=== PATIENT | female | born 1945 | race Caucasian/White ===

== ENCOUNTER → 2016-08-22 | Outpatient (CLI) | payer MEDICARE, OTHER ==
--- NOTE | 2016-08-22 15:08 | MR ---
EXAMINATION: MRI cervical spine HISTORY: Neuralgia COMPARISON: None TECHNIQUE: Multiplanar and multisequence images obtained of the cervical spine without contrast. FINDINGS: The cervical spinal alignment is normal. The vertebral body heights appear maintained. Th ere is no abnormal bone marrow signal. There is a hemangioma within the T2 vertebral body. The cervi ronny spinal cord signal appears normal. The visualized intracranial components appear normal. The par avertebral soft tissues appear normal. C2-C3: There is a small broad-based left paracentral osteophyte disc complex and uncovertebral hype rtrophy resulting in minimal spinal canal stenosis. There is mild left neural foraminal stenosis. C3-C4: Small diffuse osteophyte disc complex mild spinal canal stenosis. There is moderate bilateral neural foraminal stenosis accentuated by uncovertebral hypertrophy. C4-C5: Small diffuse disc bulge without significant spinal canal or neural foraminal stenosis. C5-C6: Tiny diffuse disc bulge with moderate left neural foraminal stenosis accentuated by uncoverte bral hypertrophy. No significant spinal canal stenosis. C6-C7: Small diffuse disc bulge asymmetric to the left with uncovertebral hypertrophy. There is mild to moderate left neural foraminal stenosis. C7-T1: Unremarkable. IMPRESSION: 1. Mild to moderate multilevel degenerative disc disease noted within the cervical spine with indivi dual details above.
--- NOTE | 2016-08-22 15:35 | MR ---
EXAMINATION: MRI lumbar spine HISTORY: Radiculopathy COMPARISON: None TECHNIQUE: Multiplanar and multisequence images obtained of the lumbar spine without contrast. FINDINGS: There is a trace anterolisthesis of L4 on L5 otherwise the lumbar spinal alignment appears normal. Vertebral body heights appear well maintained. Mild heterogeneous bone marrow signal identi fied with mild endplate and facet signal changes. No suspicious bone marrow signal noted. The distal spinal cord appears normal and the conus terminates at L2. The visualized retroperitoneal structure s appear normal. The SI joints are symmetric. T12-L1: Unremarkable. L1-L2: Tiny diffuse disc bulge without significant spinal canal or neural foraminal stenosis. L2-L3: Small diffuse disc bulge with a trace spinal canal stenosis. Moderate right and mild to moder ate left neural foraminal stenosis. L3-L4: Moderate diffuse disc bulge without significant spinal canal stenosis. Moderate to severe gallito ateral neural foraminal stenosis. L4-L5: Small diffuse cerebral bulge without significant spinal canal stenosis. Moderate bilateral ne ural foraminal stenosis. L5-S1: No significant disc bulge. Moderate right and moderate to severe left neural foraminal stenos is demonstrated by facet hypertrophy. IMPRESSION: 1. Mild to moderate multilevel degenerative changes noted within the lumbar spine with individual de tails above.
== END ==
LOC: MW.MRI 08:11
PROVIDERS: ATTEND Psychiatry & Neurology Neuromuscular Medicine
DX: M50.13 Cervical disc disorder with radiculopathy, cervicothoracic region (principal); M50.11 Cervical disc disorder with radiculopathy, high cervical region; M50.121 Cervical disc disorder at C4-C5 level with radiculopathy; M50.122 Cervical disc disorder at C5-C6 level with radiculopathy; M50.123 Cervical disc disorder at C6-C7 level with radiculopathy
CPT/HCPCS: 72141; 72141-26; 72148; 72148-26

== ENCOUNTER → 2016-09-17 | Outpatient (CLI) | payer MEDICARE, OTHER | LOC: MW.CHNEURO 08:00 | PROVIDERS: ATTEND Psychiatry & Neurology Neuromuscular Medicine | DX: M54.10 Radiculopathy, site unspecified (principal); M79.2 Neuralgia and neuritis, unspecified | CPT/HCPCS: 99214 ==

== ENCOUNTER 2017-06-28 08:59 | Day surgery (SDC) | payer MEDICARE, OTHER ==
[~2017-06-28 08:59] MED LIST: Bupivacaine 25%/EPINEPHrine/PF 30 ML ONE; Dexamethasone/Tobramycin 0.1-0.3% Ophth Oint 3.5 GM Tube ONE; Octyl 2-Cyanoacrylate 1 Tube ONE
[2017-06-28] MEDS ORDERED: Midazolam 1 MG/ML 2 ML SDV ONE ×2 (09:32→12:02)
[2017-06-28] MEDS ORDERED: fentaNYL 100 MCG/2 ML SDV ONE (09:32)
[2017-06-28] MEDS ORDERED: Propofol 200 MG/20 ML SDV ONE (09:32)
[2017-06-28] MEDS ORDERED: Lactated Ringers 1,000 ML IV SCH (10:00)
[2017-06-28] MEDS ORDERED: Bupivacaine 0.25%/EPINEPHrine 1:200,000 10 ML SDV INJECT ONE (10:17)
[2017-06-28] MEDS ORDERED: ceFAZolin 2 GM in Premix Bag 1 BAG IV ONE (10:17)
[2017-06-28] MEDS ORDERED: Acetaminophen/HYDROcodone 325-5 MG Tab PO PRN (10:17)
--- NOTE | 2017-06-28 11:01 | PCM.PREANE ---
Preanesthetic Assessment - Anesthesia/Transfusion/Family Hx Anesthesia History: Prior Anesthesia Without Reaction Family History of Anesthesia Reaction: No Transfusion History: Prior Transfusion Without Reaction Intubation History: Unknown - Review of Systems General: No Symptoms Pulmonary: No Symptoms Cardiovascular: No Symptoms Gastrointestinal: No Symptoms Neurological: No Symptoms Other: Reports: None - Physical Assessment Height: 1.65 m Weight: 88.904 kg ASA Class: 2 Mental Status: Alert & Oriented x3 Airway Class: Mallampati = 2 Dentition: Reports: Normal Dentition (grinded edges on front teeth) Thyro-Mental Finger Breadths: 3 Mouth Opening Finger Breadths: 2 ROM/Head Extension: Limited/Partial Lungs: Clear to Auscultation, Normal Respiratory Effort Cardiovascular: Regular Rate, Regular Rhythm - Allergies Allergies/Adverse Reactions: Allergies Allergy/AdvReac Type Severity Reaction Status Date / Time No Known Allergies Allergy Verified 06/26/17 14:23 - Blood Blood Available: No - Anesthesia Plan Pre-Op Medication Ordered: None - Acknowledgements Anesthesia Type Planned: MAC Pt an Appropriate Candidate for the Planned Anesthesia: Yes Alternatives and Risks of Anesthesia Discussed w Pt/Guardian: Yes Pt/Guardian Understands and Agrees with Anesthesia Plan: Yes PreAnesthesia Questionnaire HEENT History: Other HEENT History: wears glasses Gastrointestinal History: Reports: GERD Musculoskeletal History: Reports: Arthritis, Fracture Other Musculoskeletal History: polio as a child, weakness in left arm Endocrine/Metabolic History: Reports: Obesity/BMI 30+ Hematologic History: Reports: Blood Transfusion(s) - Past Surgical History GI Surgical History: Reports: Cholecystectomy Female Surgical History: Reports: Hysterectomy - SUBSTANCE USE Smoking Status *Q: Never Smoker Recreational Drug Use History: No - HOME MEDS Home Medications: Home Meds Acetaminophen 650 mg PO BEDTIME 06/26/17 [History] Nortriptyline 10 mg PO BEDTIME 06/26/17 [History] Omeprazole 40 mg PO DAILY 06/26/17 [History] - CURRENT (IN HOUSE) MEDS Current Meds: Current Medications Hydrocodone Bitart/Acetaminophen (Shubuta 325-5 Mg) 1 tab PO Q4H PRN PRN Reason: Pain Lactated Ringer's (Ringers, Lactated) 1,000 mls @ 125 mls/hr IV ASDIRECTED JUAN Last Admin: 06/28/17 10:00 Dose: 125 mls/hr Discontinued Medications Bupivacaine HCl/Epinephrine Bitart (Marcaine 0.25%/Epinephrine 1:200,000) 10 ml INJECT ONETIME ONE Stop: 06/28/17 10:18 Fentanyl (Sublimaze) Confirm Administered Dose 100 mcg .ROUTE .STK-MED ONE Stop: 06/28/17 09:33 Bupivacaine HCl/Epinephrine Bitart (Sensorc Mpf 0.25%-Epi 1:[id number]) Confirm Administered Dose 30 mls @ as directed .ROUTE .STK-MED ONE Stop: 06/28/17 07:21 Cefazolin Sodium/Dextrose 2 gm (/ Premix) 50 mls @ 100 mls/hr IV ONETIME ONE Stop: 06/28/17 10:46 Lidocaine HCl (Xylocaine-Mpf 1%) Confirm Administered Dose 5 ml .ROUTE .STK-MED ONE Stop: 06/28/17 09:36 Midazolam HCl (Versed 1 Mg/Ml) Confirm Administered Dose 2 mg .ROUTE .STK-MED ONE Stop: 06/28/17 09:33 Octyl Cyanoacrylate (Dermabond Advance) Confirm Administered Dose 1 applic .ROUTE .STK-MED ONE Stop: 06/28/17 07:21 Propofol (Diprivan 20 Ml) Confirm Administered Dose 200 mg .ROUTE .STK-MED ONE Stop: 06/28/17 09:33 Tobramycin/Dexamethasone (Tobradex Ophth Oint) Confirm Administered Dose 3.5 gm .ROUTE .STK-MED ONE Stop: 06/28/17 07:21
[2017-06-28] MEDS ORDERED: ceFAZolin 1 GM Vial ONE (12:37)
--- NOTE | 2017-06-28 13:34 | PCM48HPAN ---
Post Anesthesia Note - EVALUATION WITHIN 48HRS OF ANESTHETIC Vital Signs in Normal Range: Yes Patient Participated in Evaluation: Yes Respiratory Function Stable: Yes Airway Patent: Yes Cardiovascular Function Stable: Yes Hydration Status Stable: Yes Pain Control Satisfactory: Yes Nausea and Vomiting Control Satisfactory: Yes Mental Status Recovered: Yes - COMMENTS/OBSERVATIONS Free Text/Narrative:: no anesthesia problems, patient skipped recovery room phase of postoperative care
--- NOTE | 2017-06-28 14:26 | PCM.OPNOTE ---
- General Post-Op/Procedure Note Date of Surgery/Procedure: 06/28/17 Operative Procedure(s): bilateral upper lid blepharoplasties for excess skin Pre Op Diagnosis: bilateral upper eyelid excess skin causing visual obstruction Post-Op Diagnosis: Same Anesthesia Technique: Local, MAC Primary Surgeon: Aimee Collins [employer] Lieutenant: Michelle Nixon Complications: None Condition: Good
--- NOTE | 2017-06-28 20:24 | OR ---
SURGEON: SHELIA LEDEZMA MD DATE OF PROCEDURE: 06/28/2017 PREOPERATIVE DIAGNOSIS: Bilateral upper lid excess skin causing visual obstruction. POSTOPERATIVE DIAGNOSIS: Bilateral upper lid excess skin causing visual obstruction. PROCEDURE: Bilateral upper lid blepharoplasty for excess skin. SAND SLINGER OPERATOR: TARYN Sánchez. REASON SAND SLINGER OPERATOR WAS NECESSARY: Retraction, positioning, and closure assistance. ANESTHESIA: Local MAC. INDICATION: Ms. 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 Risks and benefits of excision were discussed with her, and she was in agreement to proceed. Risks were including, but not limited to bleeding, infection, damage to underlying or overlying structures, possible need for future interventions, and possible scarring. PROCEDURE IN DETAIL: After informed consent was obtained and placed on the chart, the patient was brought into the operating theater and laid in a supine position. After local MAC anesthesia was obtained, the area was prepped and draped and a time-out was completed to confirm side and site. Attention was then paid to marking of the upper eyelid planned incisions. 1.5 cm estimate was planned for excision with a 1 cm of skin being left on the upper eyelid to preserve the tarsal area. Once adequately marked, it was anesthetized and then allowed to sit for meticulous hemostasis with the epinephrine. Once adequately prepared, attention was then paid to excision of the ellipse of skin in a normal fashion, and meticulous hemostasis was obtained for the underlying muscle contraction. Once adequately excised, then meticulous hemostasis had been obtained. The wounds were closed using deep 5-0 Monocryl stitch and a running 6-0 subcuticular for the skin. The 6-0 Prolene stitch was Steri-Stripped in place using Mastisol and Steri-Strips at the medial and lateral aspect of the eyes. The patient tolerated this well. All counts and needles were correct at the end of the case. FOLLOWUP INSTRUCTIONS: The patient will see us in approximately 1 week, sooner if any problems, questions, or concerns. JASON / ZURDO /[id number]
== END 2017-06-28 13:35 | disposition home or self-care (01) ==
LOC: MW.SDS 08:59
PROVIDERS: ATTEND Plastic Surgery
DX: H02.834 Dermatochalasis of left upper eyelid (principal); H02.831 Dermatochalasis of right upper eyelid; K21.9 Gastro-esophageal reflux disease without esophagitis; M19.90 Unspecified osteoarthritis, unspecified site; E66.9 Obesity, unspecified; Z68.30 Body mass index [BMI] 30.0-30.9, adult; Z90.49 Acquired absence of other specified parts of digestive tract; Z79.899 Other long term (current) drug therapy
CPT/HCPCS: 15822; A9270; J0690; J2250; J3010; J7120; 00103; J2704

== ENCOUNTER 2018-02-01 18:29 | Emergency (ER) | payer MEDICARE, OTHER ==
[2018-02-01] MEDS ORDERED: Sodium Chloride 0.9% 1,000 ML IV ONE (18:30)
[2018-02-01] MEDS ORDERED: Promethazine 25 MG/ML SDV IM ONE (18:31)
[2018-02-01] MEDS ORDERED: Ketorolac 30 MG/ML SDV IVPUSH ONE (18:35)
--- NOTE | 2018-02-01 18:35 | EDM.PDOC ---
ED HPI GENERAL MEDICAL PROBLEM - General Chief Complaint: Gastrointestinal Problem Stated Complaint: AMB Time Seen by Provider: 02/01/18 18:30 Source of Information: Reports: Patient History Limitations: Reports: No Limitations - History of Present Illness INITIAL COMMENTS - FREE TEXT/NARRATIVE: HISTORY AND PHYSICAL: History of present illness: Patient is a 72-year-old female who presents to the emergency room today with complaints of nausea, vomiting and post surgical pain. Patient had a left knee surgery on Saturday by Dr. Olivera. She states she was given a prescription for Bristow for pain management. She states she is unable to take this medication as it causes extreme nausea and vomiting. She reports that [id number] Tylenol and ibuprofen has not been alleviating her discomfort. When attempting to take the Bristow for pain management and deal with the nausea and vomiting. She did have some Zofran available to her at home which she states has not helped with the nausea and vomiting. She is currently concerned as she feels she is dehydrated from this. She states she has no concerns of the post surgery itself. She denies any fever, chills, chest pain, shortness of breath or cough. Denies diarrhea, constipation or dysuria. Review of systems: As per history of present illness and below otherwise all systems reviewed and negative. Past medical history: As per history of present illness and as reviewed below otherwise noncontributory. Surgical history: As per history of present illness and as reviewed below otherwise noncontributory. Social history: No reported history of drug or alcohol abuse. Family history: As per history of present illness and as reviewed below otherwise noncontributory. Physical exam: General: Well-developed and well-nourished 72-year-old female. Alert and oriented. Nontoxic appearing and in no acute distress. HEENT: Atraumatic, normocephalic, pupils equal and reactive bilaterally, negative for conjunctival pallor or scleral icterus, mucous membranes moist, throat clear, neck supple, nontender, trachea midline. No drooling or trismus noted. No meningeal signs Lungs: Clear to auscultation, breath sounds equal bilaterally, chest nontender. Heart: S1S2, regular rate and rhythm without overt murmur Abdomen: Soft, nondistended, nontender. Negative for masses or hepatosplenomegaly. Negative for costovertebral tenderness. Pelvis: Stable nontender. 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: Deferred. Rectal: Deferred. Skin: Intact, warm, dry. No lesions or rashes noted. Extremities: Atraumatic, does have a dressing to the left knee with the surrounding skin to appear intact without evidence of erythema. He is negative for cords or calf pain. Neurovascular unremarkable. Neuro: Awake, alert, oriented. Cranial nerves II through XII unremarkable. Cerebellum unremarkable. Motor and sensory unremarkable throughout. Exam nonfocal. Notes: Patient states that she feels somewhat improved after the IM Phenergan and fluids. Will discharge patient to home with a prescription for the Phenergan and tramadol. Encouraged her to follow-up with Dr. Collins on Saturday for further pain management. Diagnostics: CBC, CMP Therapeutics: IV fluid, Phenergan IM Prescription: Phenergan IM Tramadol PRN Impression: Nausea Post Operative Pain Plan: 1. Please continue to take your pain medication routinely. You may want to use the tramadol instead of the Bristow for pain management if you feel that the Bristow is too strong. 2. You may continue with your Zofran. Phenergan suppository has been prescribed to help with the nausea as well. 3. Small frequent sips of fluids to prevent dehydration. 4. Follow-up with Dr. Olivera next week. Return to the ED as needed and as discussed. Definitive disposition and diagnosis as appropriate pending reevaluation and review of above. Left knee pain Pain Score (Numeric/FACES): 7 - Related Data Allergies Allergy/AdvReac Type Severity Reaction Status Date / Time Penicillins Allergy Rash Verified 02/01/18 18:31 Home Meds: Home Meds Acetaminophen 650 mg PO BEDTIME 06/26/17 [History] Nortriptyline 10 mg PO BEDTIME 06/26/17 [History] Omeprazole 40 mg PO DAILY 06/26/17 [History] Nitrofurantoin Macrocrystal [Nitrofurantoin] 50 mg PO BEDTIME 01/21/18 [History] traMADol HCl [Tramadol HCl] 50 - 100 mg PO Q6H PRN 01/21/18 [History] Hydrocodone/Acetaminophen [Hydrocodon-Acetaminophen 5-325] 1 each PO Q6HR PRN [History] Nortriptyline HCl [Pamelor] 10 mg PO DAILY 02/01/18 [History] Omeprazole Magnesium [Prilosec Otc] 40 mg PO DAILY 02/01/18 [History] Ondansetron HCl [Zofran] 4 mg PO Q6H PRN 02/01/18 [History] Promethazine HCl [Phenergan] 12.5 mg RC TID PRN #6 supp.rect 02/01/18 [Rx] traMADol [Ultram] 50 mg PO Q4H PRN #20 tab 02/01/18 [Rx] Past Medical History HEENT History: Reports: Hard of Hearing Other HEENT History: wears glasses Gastrointestinal History: Reports: GERD, Hiatal Hernia 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 History: Reports: UTI, Recurrent Other 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 History: takes daily antibiotic DATA ENGINEER History: Reports: Musculoskeletal History: Reports: Osteoarthritis Other Musculoskeletal History: polio as a child, weakness in left arm Neurological History: Reports: Other (See Below) Other Neuro History: hx of polio as a child- has nerve pain in left arm- takes Nortriptyline, hx of motion sickness Endocrine/Metabolic History: Reports: Obesity/BMI 30+ Hematologic History: Reports: Blood Transfusion(s) - Past Surgical History HEENT Surgical History: Reports: Other (See Below) Other HEENT Surgeries/Procedures: had a "tag" removed from her eye GI Surgical History: Reports: Appendectomy, Cholecystectomy Female Surgical History: Reports: Hysterectomy, Other (See Below) Other Female Surgeries/Procedures: bladder repair ED ROS GENERAL - Review of Systems Review Of Systems: ROS reveals no pertinent complaints other than HPI. ED EXAM, GI/ABD - Physical Exam Exam: See Below (See dictation) Course - Vital Signs Last Recorded V/S: Last Vital Signs Temp 99.1 F 02/01/18 19:24 Pulse 75 02/01/18 19:24 Resp 18 02/01/18 19:24 BP 152/68 H 02/01/18 19:24 Pulse Ox 92 L 02/01/18 19:24 - Orders/Labs/Meds Labs: Laboratory Tests 02/01/18 02/01/18 Range/Units 19:03 19:03 WBC 7.92 (4.0-11.0) K/uL RBC 4.34 (4.30-5.90) M/uL Hgb 12.7 (12.0-16.0) g/dL Hct 38.0 (36.0-46.0) % MCV 87.6 (80.0-98.0) fL MCH 29.3 (27.0-32.0) pg MCHC 33.4 (31.0-37.0) g/dL RDW Std Deviation 42.3 (28.0-62.0) fl RDW Coeff of Noah 13 (11.0-15.0) % Plt Count 311 (150-400) K/uL MPV 9.40 (7.40-12.00) fL Neut % (Auto) 62.7 (48.0-80.0) % Lymph % (Auto) 26.8 (16.0-40.0) % [place] % (Auto) 9.6 (0.0-15.0) % Eos % (Auto) 0.6 (0.0-7.0) % Baso % (Auto) 0.3 (0.0-1.5) % Neut # (Auto) 5.0 (1.4-5.7) K/uL Lymph # (Auto) 2.1 (0.6-2.4) K/uL [place] # (Auto) 0.8 (0.0-0.8) K/uL Eos # (Auto) 0.1 (0.0-0.7) K/uL Baso # (Auto) 0.0 (0.0-0.1) K/uL Nucleated RBC % 0.0 /100WBC Nucleated RBCs # 0 K/uL Sodium 140 (136-145) mmol/L Potassium 4.1 (3.5-5.1) mmol/L Chloride 104 (98-107) mmol/L Carbon Dioxide 29.5 (21.0-32.0) mmol/L BUN 10 (7.0-18.0) mg/dL Creatinine 0.7 (0.6-1.0) mg/dL Est Cr Clr Drug Dosing 69.01 mL/min Estimated GFR (MDRD) > 60.0 ml/min Glucose 104 (74-106) mg/dL Calcium 8.4 L (8.5-10.1) mg/dL Total Bilirubin 1.2 H (0.2-1.0) mg/dL AST 25 (15-37) IU/L ALT 25 (14-63) IU/L Alkaline Phosphatase 200 H (46-116) U/L Total Protein 5.5 L (6.4-8.2) g/dL Albumin <0.6 L (3.4-5.0) g/dL Globulin 5.5 H (2.0-3.5) g/dL Albumin/Globulin Ratio 0.0 L (1.3-2.8) Meds: Medications Discontinued Medications Generic Name Dose Route Start Last Admin Trade Name Freq PRN Reason Stop Dose Admin Sodium Chloride 1,000 mls @ 999 mls/hr 02/01/18 18:30 02/01/18 18:50 Normal Saline IV 02/01/18 19:30 999 mls/hr STAT ONE Administration Ketorolac Tromethamine 30 mg 02/01/18 18:35 02/01/18 18:52 Toradol IVPUSH 02/01/18 18:36 30 mg ONETIME ONE Administration Promethazine HCl 25 mg 02/01/18 18:31 02/01/18 18:50 Phenergan IM 02/01/18 18:32 25 mg ONETIME ONE Administration Departure - Departure Time of Disposition: 19:43 Disposition: Home, Self-Care 01 Clinical Impression: Post-operative pain Nausea and vomiting Qualifiers: Vomiting type: unspecified Vomiting Intractability: non-intractable Qualified Code(s): R11.2 - Nausea with vomiting, unspecified - Discharge Information Prescriptions: Promethazine HCl [Phenergan] 12.5 mg RC TID PRN #6 supp.rect PRN Reason: Nausea traMADol [Ultram] 50 mg PO Q4H PRN #20 tab PRN Reason: Pain Referrals: PCP,None [Primary Care Provider] - Forms: ED Department Discharge Additional Instructions: The following information is given to patients seen in the emergency department who are being discharged to home. This information is to outline your options for follow-up care. We provide all patients seen in our emergency department with a follow-up referral. The need for follow-up, as well as the timing and circumstances, are variable depending upon the specifics of your emergency department visit. If you don't have a primary care physician on staff, we will provide you with a referral. We always advise you to contact your personal physician following an emergency department visit to inform them of the circumstance of the visit and for follow-up with them and/or the need for any referrals to a consulting specialist. The emergency department will also refer you to a specialist when appropriate. This referral assures that you have the opportunity for follow-up care with a specialist. All of these measure are taken in an effort to provide you with optimal care, which includes your follow-up. Under all circumstances we always encourage you to contact your private physician who remains a resource for coordinating your care. When calling for follow-up care, please make the office aware that this follow-up is from your recent emergency room visit. If for any reason you are refused follow-up, please contact the [facility] Emergency Department at and asked to speak to the emergency department charge nurse. [facility] [address] [place] [id number] [facility] - [facility] [address], [address] [place] [address] 1. Please continue to take your pain medication routinely. You may want to use the tramadol instead of the Bristow for pain management if you feel that the Bristow is too strong. 2. You may continue with your Zofran. Phenergan suppository has been prescribed to help with the nausea as well. 3. Small frequent sips of fluids to prevent dehydration. 4. Follow-up with Dr. Olivera next week. Return to the ED as needed and as discussed.
[2018-02-01 19:40] LABS: CHLORIDE,CL 104 mmol/L (98-107); SODIUM,NA 140 mmol/L (136-145)
== END 2018-02-01 20:17 | disposition home or self-care (01) ==
LOC: MW.ED 18:29
DX: G89.18 Other acute postprocedural pain (principal); R11.2 Nausea with vomiting, unspecified; K21.9 Gastro-esophageal reflux disease without esophagitis; M19.90 Unspecified osteoarthritis, unspecified site; Z88.0 Allergy status to penicillin; Z79.899 Other long term (current) drug therapy
CPT/HCPCS: 36415; 80053; 85025; 96361; 96372; 96374; 99284; J1885; J2550; J7040

== ENCOUNTER 2019-05-11 13:16 | Day surgery (SDC) | payer MEDICARE, OTHER ==
[2019-05-11] MEDS ORDERED: Sodium Chloride 0.9% 2.5 ML Syringe FLUSH PRN (13:19)
[2019-05-11] MEDS ORDERED: Sodium Chloride 0.9% 1,000 ML IV ONE (13:19)
[2019-05-11] MEDS ORDERED: Sodium Chloride 0.9% 10 ML Syringe FLUSH PRN (13:19)
--- NOTE | 2019-05-11 13:19 | EDM.PDOC ---
ED HPI GENERAL MEDICAL PROBLEM - General Chief Complaint: Chest Pain Stated Complaint: CHEST DISCOMFORT Time Seen by Provider: 05/11/19 13:19 Source of Information: Reports: Patient History Limitations: Reports: No Limitations - History of Present Illness INITIAL COMMENTS - FREE TEXT/NARRATIVE: HISTORY AND PHYSICAL: History of present illness: patient is a 73-year-old female presents to the ED chest discomfort. she states that last night she had some chicken and she felt the chicken got stuck. She has had some vomiting since then but still has discomfort in her mid chest and she is unable to swallow her saliva and keeps spitting up secretions. She denies shortness of breath, cough, fevers, chills, nausea, vomiting. She does have a hiatal hernia. Denies significant past medical or surgical history. Review of systems: As per history of present illness and below otherwise all systems reviewed and negative. Past medical history: As per history of present illness and as reviewed below otherwise noncontributory. Surgical history: As per history of present illness and as reviewed below otherwise noncontributory. Social history: No reported history of drug or alcohol abuse. Family history: As per history of present illness and as reviewed below otherwise noncontributory. Physical exam: General: Patient sitting comfortably in no acute distress and nontoxic appearing HEENT: Atraumatic, normocephalic, pupils reactive, negative for conjunctival pallor or scleral icterus, mucous membranes moist, throat clear, neck supple, nontender, trachea midline. No meningeal signs. Lungs: Clear to auscultation, breath sounds equal bilaterally, chest nontender. Heart: S1S2, regular, negative for clicks, rubs, or overt murmur. Abdomen: Soft, nondistended, nontender. Negative for masses or hepatosplenomegaly. Negative for costovertebral tenderness. No rigidity, rebound , guarding. Pelvis: Stable nontender. 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: Deferred. Rectal: Deferred. Extremities: Atraumatic, negative for cords or calf pain. Neurovascular unremarkable. Neuro: Awake, alert, oriented. Cranial nerves II through XII unremarkable. Cerebellum unremarkable. Motor and sensory unremarkable throughout. Exam nonfocal. Notes: Patient unable to keep liquid down with PO challenge. Diagnostics: CBC, CMP, troponin, EKG, CXR Therapeutics: 1g Glucagon IV Prescriptions: Impression: Food bolus Plan: Discussed with Dr. Chavarria, patient will be taken to OR for food bolus. Definitive disposition and diagnosis as appropriate pending reevaluation and review of above. CHEST Pain Score (Numeric/FACES): 6 - Related Data Allergies Allergy/AdvReac Type Severity Reaction Status Date / Time Penicillins Allergy Rash Verified 02/01/18 18:31 Home Meds: Home Meds Acetaminophen 650 mg PO BEDTIME 06/26/17 [History] Nortriptyline 10 mg PO BEDTIME 06/26/17 [History] Omeprazole 40 mg PO DAILY 06/26/17 [History] Nitrofurantoin Macrocrystal [Nitrofurantoin] 50 mg PO BEDTIME 01/21/18 [History] traMADol HCl [Tramadol HCl] 50 - 100 mg PO Q6H PRN 01/21/18 [History] Hydrocodone/Acetaminophen [Hydrocodon-Acetaminophen 5-325] 1 each PO Q6HR PRN [History] Nortriptyline HCl [Pamelor] 10 mg PO DAILY 02/01/18 [History] Omeprazole Magnesium [Prilosec Otc] 40 mg PO DAILY 02/01/18 [History] Ondansetron HCl [Zofran] 4 mg PO Q6H PRN 02/01/18 [History] Promethazine HCl [Phenergan] 12.5 mg RC TID PRN #6 supp.rect 02/01/18 [Rx] traMADol [Ultram] 50 mg PO Q4H PRN #20 tab 02/01/18 [Rx] Past Medical History HEENT History: Reports: Hard of Hearing Other HEENT History: wears glasses Gastrointestinal History: Reports: GERD, Hiatal Hernia 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 History: Reports: UTI, Recurrent Other 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 History: 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 daily antibiotic 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: Musculoskeletal History: Reports: Osteoarthritis Other Musculoskeletal History: polio as a child, weakness in left arm Neurological History: Reports: Other (See Below) Other Neuro History: hx of polio as a child- has nerve pain in left arm- takes Nortriptyline, hx of motion sickness Endocrine/Metabolic History: Reports: Obesity/BMI 30+ Hematologic History: Reports: Blood Transfusion(s) - Past Surgical History HEENT Surgical History: Reports: Other (See Below) Other HEENT Surgeries/Procedures: had a "tag" removed from her eye GI Surgical History: Reports: Appendectomy, Cholecystectomy Female Surgical History: Reports: Hysterectomy, Other (See Below) Other Female Surgeries/Procedures: bladder repair Social & Family History - Family History Family Medical History: Noncontributory ED ROS GENERAL - Review of Systems Review Of Systems: Comprehensive ROS is negative, except as noted in HPI. ED EXAM, GENERAL - Physical Exam Exam: See Below (see dictation) Course - Vital Signs Last Recorded V/S: Last Vital Signs Temp 98.1 F 05/11/19 13:25 Pulse 100 05/11/19 13:25 Resp 16 05/11/19 13:25 BP 160/96 H 05/11/19 13:25 Pulse Ox 95 05/11/19 13:25 - Orders/Labs/Meds Orders: Active Orders 24 hr Category Date Time Status EKG Documentation Completion [RC] STAT Care 05/11/19 13:19 Active Sodium Chloride 0.9% [Saline Flush] Med 05/11/19 13:19 Active 10 ml FLUSH ASDIRECTED PRN Sodium Chloride 0.9% [Saline Flush] Med 05/11/19 13:19 Active 2.5 ml FLUSH ASDIRECTED PRN Saline Lock Insert [OM.PC] Stat Oth 05/11/19 13:19 Ordered Medication Orders Sodium Chloride (Saline Flush) 10 ml FLUSH ASDIRECTED PRN PRN Reason: Keep Vein Open Sodium Chloride (Saline Flush) 2.5 ml FLUSH ASDIRECTED PRN PRN Reason: Keep Vein Open Labs: Laboratory Tests 05/11/19 05/11/19 05/11/19 Range/Units 13:20 13:20 14:01 WBC 7.93 (4.0-11.0) K/uL RBC 5.51 (4.30-5.90) M/uL Hgb 16.4 H (12.0-16.0) g/dL Hct 48.1 H (36.0-46.0) % MCV 87.3 (80.0-98.0) fL MCH 29.8 (27.0-32.0) pg MCHC 34.1 (31.0-37.0) g/dL RDW Std Deviation 43.0 (28.0-62.0) fl RDW Coeff of Noah 13 (11.0-15.0) % Plt Count 327 (150-400) K/uL MPV 9.90 (7.40-12.00) fL Neut % (Auto) 43.9 L (48.0-80.0) % Lymph % (Auto) 45.1 H (16.0-40.0) % [place] % (Auto) 9.2 (0.0-15.0) % Eos % (Auto) 1.5 (0.0-7.0) % Baso % (Auto) 0.3 (0.0-1.5) % Neut # (Auto) 3.5 (1.4-5.7) K/uL Lymph # (Auto) 3.6 H (0.6-2.4) K/uL [place] # (Auto) 0.7 (0.0-0.8) K/uL Eos # (Auto) 0.1 (0.0-0.7) K/uL Baso # (Auto) 0.0 (0.0-0.1) K/uL Nucleated RBC % 0.0 /100WBC Nucleated RBCs # 0 K/uL INR 0.99 Sodium 145 (136-145) mmol/L Potassium 3.2 L (3.5-5.1) mmol/L Chloride 104 (98-107) mmol/L Carbon Dioxide 27.6 (21.0-32.0) mmol/L BUN 10 (7.0-18.0) mg/dL Creatinine 0.7 (0.6-1.0) mg/dL Est Cr Clr Drug Dosing 68.01 mL/min Estimated GFR (MDRD) > 60.0 ml/min Glucose 108 H (74-106) mg/dL Calcium 9.1 (8.5-10.1) mg/dL Total Bilirubin 1.2 H (0.2-1.0) mg/dL AST 26 (15-37) IU/L ALT 30 (14-63) IU/L Alkaline Phosphatase 94 (46-116) U/L Troponin I < 0.050 (0.000-0.056) ng/mL Total Protein 7.7 (6.4-8.2) g/dL Albumin 4.1 (3.4-5.0) g/dL Globulin 3.6 (2.6-4.0) g/dL Albumin/Globulin Ratio 1.1 (0.9-1.6) Meds: Medications Generic Name Dose Route Start Last Admin Trade Name Ck PRN Reason Stop Dose Admin Sodium Chloride 10 ml 05/11/19 13:19 Saline Flush FLUSH ASDIRECTED PRN Keep Vein Open Sodium Chloride 2.5 ml 05/11/19 13:19 Saline Flush FLUSH ASDIRECTED PRN Keep Vein Open Discontinued Medications Generic Name Dose Route Start Last Admin Trade Name Ck PRN Reason Stop Dose Admin Glucagon 1 mg 05/11/19 13:24 05/11/19 13:33 Glucagen IVPUSH 05/11/19 13:25 1 mg ONETIME ONE Administration Sodium Chloride 1,000 mls @ 999 mls/hr 05/11/19 13:19 05/11/19 13:33 Normal Saline IV 05/11/19 14:19 999 mls/hr BOLUS ONE Administration Departure - Departure Time of Disposition: 14:54 Disposition: Still A Patient 30 Condition: Good Clinical Impression: Food impaction of esophagus Forms: ED Department Discharge - My Orders Last 24 Hours: My Active Orders 05/11/19 13:19 EKG Documentation Completion [RC] STAT Sodium Chloride 0.9% [Saline Flush] 10 ml FLUSH ASDIRECTED PRN Sodium Chloride 0.9% [Saline Flush] 2.5 ml FLUSH ASDIRECTED PRN Saline Lock Insert [OM.PC] Stat - Assessment/Plan Last 24 Hours: My Active Orders 05/11/19 13:19 EKG Documentation Completion [RC] STAT Sodium Chloride 0.9% [Saline Flush] 10 ml FLUSH ASDIRECTED PRN Sodium Chloride 0.9% [Saline Flush] 2.5 ml FLUSH ASDIRECTED PRN Saline Lock Insert [OM.PC] Stat
[2019-05-11] MEDS ORDERED: Glucagon,Human Recombinant 1 MG Vial IVPUSH ONE (13:24)
[2019-05-11 14:01] LABS: BLOOD UREA NITROGEN,BUN 10 mg/dL (7.0-18.0); CARBON DIOXIDE,CO2 27.6 mmol/L (21.0-32.0); CHLORIDE,CL 104 mmol/L (98-107); GLUCOSE RANDOM 108 mg/dL (74-106); POTASSIUM,K 3.2 mmol/L (3.5-5.1); SODIUM,NA 145 mmol/L (136-145)
--- NOTE | 2019-05-11 14:04 | CR ---
Chest: Portable view of the chest was obtained. Comparison: No prior chest x-rays available. Heart size is normal. Moderately large hiatal hernia is seen. Lungs are clear with no acute parenchymal change. Bony structures are unremarkable. Impression: 1. Nothing acute is seen on portable chest x-ray. 2. Hiatal hernia. Diagnostic code #2 MTDD
--- NOTE | 2019-05-11 15:03 | PCM.HP.2 ---
H&P History of Present Illness - General Date of Service: 05/11/19 Source of Information: Patient History Limitations: Reports: Physical Impairment - History of Present Illness Initial Comments - Free Text/Narative: Patient is a 73 year old female with a PMHx significant for a hiatal hernia who presents today with an esophageal obstruction secondary to a food bolus. She was eating chicken last night when she felt the food become impacted. Since then she has had chest pain and vomiting. She cannot swallow food, liquids or even her saliva. She came to the ER and had a cardiac workup which was negative. She was hypertensive on arrival. She has a moderate sized hiatal hernia that is mentioned on her CXR. She was given glucagon with no relief. She has difficulty telling me her past history given the pain she is experiencing and between vomiting episodes. She has never had an EGD. She takes prilosec daily for GERD. CHEST Pain Score (Numeric/FACES): 6 - Related Data Allergies/Adverse Reactions: Allergies Allergy/AdvReac Type Severity Reaction Status Date / Time Penicillins Allergy Rash Verified 02/01/18 18:31 Home Medications: Home Meds Acetaminophen 650 mg PO BEDTIME 06/26/17 [History] Nortriptyline 10 mg PO BEDTIME 06/26/17 [History] Omeprazole 40 mg PO DAILY 06/26/17 [History] Nitrofurantoin Macrocrystal [Nitrofurantoin] 50 mg PO BEDTIME 01/21/18 [History] traMADol HCl [Tramadol HCl] 50 - 100 mg PO Q6H PRN 01/21/18 [History] Hydrocodone/Acetaminophen [Hydrocodon-Acetaminophen 5-325] 1 each PO Q6HR PRN [History] Nortriptyline HCl [Pamelor] 10 mg PO DAILY 02/01/18 [History] Omeprazole Magnesium [Prilosec Otc] 40 mg PO DAILY 02/01/18 [History] Ondansetron HCl [Zofran] 4 mg PO Q6H PRN 02/01/18 [History] Promethazine HCl [Phenergan] 12.5 mg RC TID PRN #6 supp.rect 02/01/18 [Rx] traMADol [Ultram] 50 mg PO Q4H PRN #20 tab 02/01/18 [Rx] Past Medical History HEENT History: Reports: Hard of Hearing Other HEENT History: wears glasses Gastrointestinal History: Reports: GERD, Hiatal Hernia 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 History: Reports: UTI, Recurrent Other 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 History: 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: Musculoskeletal History: Reports: Osteoarthritis Other Musculoskeletal History: polio as a child, weakness in left arm Neurological History: Reports: Other (See Below) Other Neuro History: hx of polio as a child- has nerve pain in left arm- takes Nortriptyline, hx of motion sickness Endocrine/Metabolic History: Reports: Obesity/BMI 30+ Hematologic History: Reports: Blood Transfusion(s) - Infectious Disease History Infectious Disease History: Reports: Chicken Pox - Past Surgical History HEENT Surgical History: Reports: Other (See Below) Other HEENT Surgeries/Procedures: had a "tag" removed from her eye GI Surgical History: Reports: Appendectomy, Cholecystectomy Female Surgical History: Reports: Hysterectomy, Other (See Below) Other Female Surgeries/Procedures: bladder repair Social & Family History - Family History Family Medical History: Noncontributory - Tobacco Use Smoking Status *Q: Never Smoker - Recreational Drug Use Recreational Drug Use: No H&P Review of Systems - Review of Systems: Review Of Systems: See Below General: Reports: No Symptoms HEENT: Reports: No Symptoms Pulmonary: Reports: No Symptoms Cardiovascular: Reports: Chest Pain Gastrointestinal: Reports: No Symptoms 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: Reports: No Symptoms Musculoskeletal: Reports: No Symptoms Exam - Exam Exam: See Below - Vital Signs Vital Signs: Last Vital Signs Temp 36.7 C 05/11/19 13:25 Pulse 100 05/11/19 13:25 Resp 16 05/11/19 13:25 BP 160/96 H 05/11/19 13:25 Pulse Ox 95 05/11/19 13:25 Weight: 90.718 kg - Exam General: Alert, Oriented, Moderate Distress HEENT: Conjunctiva Clear, Mucosa Moist & Marie, Posterior Pharynx Clear Neck: Supple, Trachea Midline Lungs: Clear to Auscultation, Normal Respiratory Effort Cardiovascular: Regular Rate, Regular Rhythm GI/Abdominal Exam: Soft, Non-Tender, No Distention, No Mass - Patient Data Lab Results Last 24 hrs: Laboratory Results - last 24 hr 05/11/19 05/11/19 05/11/19 Range/Units 13:20 13:20 14:01 WBC 7.93 (4.0-11.0) K/uL RBC 5.51 (4.30-5.90) M/uL Hgb 16.4 H (12.0-16.0) g/dL Hct 48.1 H (36.0-46.0) % MCV 87.3 (80.0-98.0) fL MCH 29.8 (27.0-32.0) pg MCHC 34.1 (31.0-37.0) g/dL RDW Std Deviation 43.0 (28.0-62.0) fl RDW Coeff of Noah 13 (11.0-15.0) % Plt Count 327 (150-400) K/uL MPV 9.90 (7.40-12.00) fL Neut % (Auto) 43.9 L (48.0-80.0) % Lymph % (Auto) 45.1 H (16.0-40.0) % [place] % (Auto) 9.2 (0.0-15.0) % Eos % (Auto) 1.5 (0.0-7.0) % Baso % (Auto) 0.3 (0.0-1.5) % Neut # (Auto) 3.5 (1.4-5.7) K/uL Lymph # (Auto) 3.6 H (0.6-2.4) K/uL [place] # (Auto) 0.7 (0.0-0.8) K/uL Eos # (Auto) 0.1 (0.0-0.7) K/uL Baso # (Auto) 0.0 (0.0-0.1) K/uL Nucleated RBC % 0.0 /100WBC Nucleated RBCs # 0 K/uL INR 0.99 Sodium 145 (136-145) mmol/L Potassium 3.2 L (3.5-5.1) mmol/L Chloride 104 (98-107) mmol/L Carbon Dioxide 27.6 (21.0-32.0) mmol/L BUN 10 (7.0-18.0) mg/dL Creatinine 0.7 (0.6-1.0) mg/dL Est Cr Clr Drug Dosing 68.01 mL/min Estimated GFR (MDRD) > 60.0 ml/min Glucose 108 H (74-106) mg/dL Calcium 9.1 (8.5-10.1) mg/dL Total Bilirubin 1.2 H (0.2-1.0) mg/dL AST 26 (15-37) IU/L ALT 30 (14-63) IU/L Alkaline Phosphatase 94 (46-116) U/L Troponin I < 0.050 (0.000-0.056) ng/mL Total Protein 7.7 (6.4-8.2) g/dL Albumin 4.1 (3.4-5.0) g/dL Globulin 3.6 (2.6-4.0) g/dL Albumin/Globulin Ratio 1.1 (0.9-1.6) Result Diagrams: 05/11/19 13:20 05/11/19 13:20 - Problem List (1) Food impaction of esophagus SNOMED Code(s): 268881362 ICD Code: T18.128A - FOOD IN ESOPHAGUS CAUSING OTHER INJURY, INITIAL ENCOUNTER Status: Acute Current Visit: No Problem List Initiated/Reviewed/Updated: Yes Orders Last 24hrs: Active Orders 24 hr Category Date Time Status EKG Documentation Completion [RC] STAT Care 05/11/19 13:19 Active Sodium Chloride 0.9% [Saline Flush] Med 05/11/19 13:19 Active 10 ml FLUSH ASDIRECTED PRN Sodium Chloride 0.9% [Saline Flush] Med 05/11/19 13:19 Active 2.5 ml FLUSH ASDIRECTED PRN Saline Lock Insert [OM.PC] Stat Oth 05/11/19 13:19 Ordered Medication Orders Sodium Chloride (Saline Flush) 10 ml FLUSH ASDIRECTED PRN PRN Reason: Keep Vein Open Sodium Chloride (Saline Flush) 2.5 ml FLUSH ASDIRECTED PRN PRN Reason: Keep Vein Open Assessment/Plan Comment:: Patient has a food impaction of the esophagus. The treatment for this is a diagnostic EGD with food bolus disimpaction. She and I discussed the procedure, expected perioperative course and risks including bleeding infection or perforation. She verbalized understanding and wishes to proceed.
--- NOTE | 2019-05-11 15:13 | PCM.PREANE ---
Preanesthetic Assessment - Procedure Proposed Procedure: EGD with food bolus extraction - Anesthesia/Transfusion/Family Hx Anesthesia History: Prior Anesthesia Reaction (had a "psychotic episode" after TKA with Dr Ro 01/2018) Type of Anesthesia Reaction: Other (see below) Other Type of Anesthesia Reaction Comment: history of motion sickness Family History of Anesthesia Reaction: No Transfusion History: Unknown Intubation History: Unknown - Review of Systems General: No Symptoms Pulmonary: No Symptoms (non smoker) Cardiovascular: Chest Pain Gastrointestinal: Abdominal Pain, Difficulty Swallowing, Other (GERD, hiatal hernia) Neurological: Weakness (Left arm from polio as child) Other: Reports: None - Physical Assessment NPO Status Date: 05/10/2079 NPO Status Time: 21:00 Vital Signs: Last Vital Signs Temp 36.7 C 05/11/19 13:25 Pulse 100 05/11/19 13:25 Resp 16 05/11/19 13:25 BP 160/96 H 05/11/19 13:25 Pulse Ox 95 05/11/19 13:25 Height: 5 ft 6 in Weight: 90.718 kg ASA Class: 2E Mental Status: Alert & Oriented x3 Airway Class: Mallampati = 1 Dentition: Reports: Normal Dentition Thyro-Mental Finger Breadths: 3 ROM/Head Extension: Limited/Partial Lungs: Clear to Auscultation, Normal Respiratory Effort Cardiovascular: Regular Rate, Regular Rhythm - Lab Values: Laboratory Last Values WBC 7.93 K/uL (4.0-11.0) 05/11/19 13:20 RBC 5.51 M/uL (4.30-5.90) 05/11/19 13:20 Hgb 16.4 g/dL (12.0-16.0) H 05/11/19 13:20 Hct 48.1 % (36.0-46.0) H 05/11/19 13:20 MCV 87.3 fL (80.0-98.0) 05/11/19 13:20 MCH 29.8 pg (27.0-32.0) 05/11/19 13:20 MCHC 34.1 g/dL (31.0-37.0) 05/11/19 13:20 RDW Std Deviation 43.0 fl (28.0-62.0) 05/11/19 13:20 RDW Coeff of Noah 13 % (11.0-15.0) 05/11/19 13:20 Plt Count 327 K/uL (150-400) 05/11/19 13:20 MPV 9.90 fL (7.40-12.00) 05/11/19 13:20 Neut % (Auto) 43.9 % (48.0-80.0) L 05/11/19 13:20 Lymph % (Auto) 45.1 % (16.0-40.0) H 05/11/19 13:20 [place] % (Auto) 9.2 % (0.0-15.0) 05/11/19 13:20 Eos % (Auto) 1.5 % (0.0-7.0) 05/11/19 13:20 Baso % (Auto) 0.3 % (0.0-1.5) 05/11/19 13:20 Neut # (Auto) 3.5 K/uL (1.4-5.7) 05/11/19 13:20 Lymph # (Auto) 3.6 K/uL (0.6-2.4) H 05/11/19 13:20 [place] # (Auto) 0.7 K/uL (0.0-0.8) 05/11/19 13:20 Eos # (Auto) 0.1 K/uL (0.0-0.7) 05/11/19 13:20 Baso # (Auto) 0.0 K/uL (0.0-0.1) 05/11/19 13:20 Nucleated RBC % 0.0 /100WBC 05/11/19 13:20 Nucleated RBCs # 0 K/uL 05/11/19 13:20 INR 0.99 05/11/19 14:01 Sodium 145 mmol/L (136-145) 05/11/19 13:20 Potassium 3.2 mmol/L (3.5-5.1) L 05/11/19 13:20 Chloride 104 mmol/L (98-107) 05/11/19 13:20 Carbon Dioxide 27.6 mmol/L (21.0-32.0) 05/11/19 13:20 BUN 10 mg/dL (7.0-18.0) 05/11/19 13:20 Creatinine 0.7 mg/dL (0.6-1.0) 05/11/19 13:20 Est Cr Clr Drug Dosing 68.01 mL/min 05/11/19 13:20 Estimated GFR (MDRD) > 60.0 ml/min 05/11/19 13:20 Glucose 108 mg/dL (74-106) H 05/11/19 13:20 Calcium 9.1 mg/dL (8.5-10.1) 05/11/19 13:20 Total Bilirubin 1.2 mg/dL (0.2-1.0) H 05/11/19 13:20 AST 26 IU/L (15-37) 05/11/19 13:20 ALT 30 IU/L (14-63) 05/11/19 13:20 Alkaline Phosphatase 94 U/L (46-116) 05/11/19 13:20 Troponin I < 0.050 ng/mL (0.000-0.056) 05/11/19 13:20 Total Protein 7.7 g/dL (6.4-8.2) 05/11/19 13:20 Albumin 4.1 g/dL (3.4-5.0) 05/11/19 13:20 Globulin 3.6 g/dL (2.6-4.0) 05/11/19 13:20 Albumin/Globulin Ratio 1.1 (0.9-1.6) 05/11/19 13:20 - Allergies Allergies/Adverse Reactions: Allergies Allergy/AdvReac Type Severity Reaction Status Date / Time Penicillins Allergy Rash Verified 02/01/18 18:31 - Blood Blood Available: No - Anesthesia Plan Pre-Op Medication Ordered: None - Acknowledgements Anesthesia Type Planned: General Anesthesia, MAC Pt an Appropriate Candidate for the Planned Anesthesia: Yes Alternatives and Risks of Anesthesia Discussed w Pt/Guardian: Yes Pt/Guardian Understands and Agrees with Anesthesia Plan: Yes PreAnesthesia Questionnaire HEENT History: Reports: Hard of Hearing Other HEENT History: wears glasses Cardiovascular History: Reports: None Respiratory History: Reports: None Gastrointestinal History: Reports: GERD, Hiatal Hernia 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 History: Reports: UTI, Recurrent Other 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 History: 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 daily antibiotic 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: Musculoskeletal History: Reports: Osteoarthritis Other Musculoskeletal History: polio as a child, weakness in left arm Neurological History: Reports: Other (See Below) Other Neuro History: hx of polio as a child- has nerve pain in left arm- takes Nortriptyline, hx of motion sickness Endocrine/Metabolic History: Reports: Obesity/BMI 30+ Hematologic History: Reports: Blood Transfusion(s) - Infectious Disease History Infectious Disease History: Reports: Chicken Pox - Past Surgical History HEENT Surgical History: Reports: Other (See Below) Other HEENT Surgeries/Procedures: had a "tag" removed from her eye GI Surgical History: Reports: Appendectomy, Cholecystectomy Female Surgical History: Reports: Hysterectomy, Other (See Below) Other Female Surgeries/Procedures: bladder repair - SUBSTANCE USE Smoking Status *Q: Never Smoker Recreational Drug Use History: No - HOME MEDS Home Medications: Home Meds Acetaminophen 650 mg PO BEDTIME 06/26/17 [History] Nortriptyline 10 mg PO BEDTIME 06/26/17 [History] Omeprazole 40 mg PO DAILY 06/26/17 [History] Nitrofurantoin Macrocrystal [Nitrofurantoin] 50 mg PO BEDTIME 01/21/18 [History] traMADol HCl [Tramadol HCl] 50 - 100 mg PO Q6H PRN 01/21/18 [History] Hydrocodone/Acetaminophen [Hydrocodon-Acetaminophen 5-325] 1 each PO Q6HR PRN [History] Nortriptyline HCl [Pamelor] 10 mg PO DAILY 02/01/18 [History] Omeprazole Magnesium [Prilosec Otc] 40 mg PO DAILY 02/01/18 [History] Ondansetron HCl [Zofran] 4 mg PO Q6H PRN 02/01/18 [History] Promethazine HCl [Phenergan] 12.5 mg RC TID PRN #6 supp.rect 02/01/18 [Rx] traMADol [Ultram] 50 mg PO Q4H PRN #20 tab 02/01/18 [Rx] - CURRENT (IN HOUSE) MEDS Current Meds: Current Medications Sodium Chloride (Saline Flush) 10 ml FLUSH ASDIRECTED PRN PRN Reason: Keep Vein Open Sodium Chloride (Saline Flush) 2.5 ml FLUSH ASDIRECTED PRN PRN Reason: Keep Vein Open Discontinued Medications Glucagon (Glucagen) 1 mg IVPUSH ONETIME ONE Stop: 05/11/19 13:25 Last Admin: 05/11/19 13:33 Dose: 1 mg Sodium Chloride (Normal Saline) 1,000 mls @ 999 mls/hr IV BOLUS ONE Stop: 05/11/19 14:19 Last Admin: 05/11/19 13:33 Dose: 999 mls/hr
[2019-05-11] MEDS ORDERED: fentaNYL 100 MCG/2 ML SDV ONE (15:24)
[2019-05-11] MEDS ORDERED: Propofol 200 MG/20 ML SDV ONE (15:24)
[2019-05-11] MEDS ORDERED: Midazolam 1 MG/ML 2 ML SDV ONE (15:24)
[2019-05-11] MEDS ORDERED: Lidocaine 2% 5 ML SDV ONE (15:24)
[2019-05-11] MEDS ORDERED: Ondansetron 4 MG/2 ML SDV ONE (16:09)
--- NOTE | 2019-05-11 16:22 | PCM.OPNOTE ---
- General Post-Op/Procedure Note Date of Surgery/Procedure: 05/11/19 Operative Procedure(s): EGD with food bolus disimpaction Findings: Hiatal hernia with GERD. Food bolus impacted at GE junction which was 30 cm at the teeth. Distal esophagus mildly tortuous due to the hiatal hernia Pre Op Diagnosis: Esophageal food impaction, hiatal hernia with gerd Post-Op Diagnosis: same Anesthesia Technique: General ET Tube Primary Surgeon: Janis Chavarria Fluid Replacement, Intraop: 1,100 EBL in mLs: 0 Condition: Stable
--- NOTE | 2019-05-11 16:39 | PCM.POSTAN ---
POST ANESTHESIA ASSESSMENT - MENTAL STATUS Mental Status: Alert - VITAL SIGNS Vital Signs: Last Vital Signs Temp 36.6 C 05/11/19 16:19 Pulse 93 05/11/19 16:34 Resp 14 05/11/19 16:34 BP 159/76 H 05/11/19 16:34 Pulse Ox 96 05/11/19 16:34 - RESPIRATORY Respiratory Status: Respiratory Rate WNL - CARDIOVASCULAR CV Status: Pulse Rate WNL - GASTROINTESTINAL GI Status: No Symptoms - POST OP HYDRATION Hydration Status: Adequate & Stable
--- NOTE | 2019-05-11 16:43 | PCM48HPAN ---
Post Anesthesia Note - EVALUATION WITHIN 48HRS OF ANESTHETIC Vital Signs in Normal Range: Yes Patient Participated in Evaluation: Yes Respiratory Function Stable: Yes Airway Patent: Yes Cardiovascular Function Stable: Yes Hydration Status Stable: Yes Pain Control Satisfactory: Yes Nausea and Vomiting Control Satisfactory: Yes Mental Status Recovered: Yes Vital Signs: Last Vital Signs Temp 36.6 C 05/11/19 16:19 Pulse 93 05/11/19 16:34 Resp 14 05/11/19 16:34 BP 159/76 H 05/11/19 16:34 Pulse Ox 96 05/11/19 16:34
--- NOTE | 2019-05-11 16:55 | OR ---
SURGEON: JANIS CHAVARRIA MD DATE OF PROCEDURE: 05/11/2019 PREOPERATIVE DIAGNOSES: 1. Hiatal hernia with gastroesophageal reflux disease. 2. Esophageal obstruction secondary to food bolus. POSTOPERATIVE DIAGNOSES: 1. Hiatal hernia with gastroesophageal reflux disease. 2. Esophageal obstruction secondary to food bolus. PROCEDURE PERFORMED: Diagnostic EGD with food bolus disimpaction. PRIMARY SURGEON: Janis Chavarria MD. ANESTHESIA: General endotracheal anesthesia. INSTRUMENT USED: Olympus endoscope. EXTENT OF EXAM: To the second portion of duodenum. COMPLICATIONS: None. INDICATIONS: The patient is a 73-year-old female who presents to the emergency room with chest pain. She was eating chicken last night when she thought she felt the food got stuck. She has had intermittent chest pain, nausea, and vomiting ever since then. Workup in the ER was negative for cardiac source. Her chest x-ray shows a moderate-sized hiatal hernia. I explained to the patient the need for diagnostic EGD with possible food bolus disimpaction. I explained the procedure, expected perioperative course, and risks including bleeding, infection, or perforation. The patient verbalized understanding and wishes to proceed. PROCEDURE IN DETAIL: The patient was brought to the OR and placed on the OR table in a beach chair position. A time-out was completed verifying the patient's name, age, date of , allergies, and procedure to be performed. General endotracheal anesthesia was induced. A bite block was placed in the patient's mouth. A well - lubricated endoscope was placed in the patient's mouth and advanced under direct visualization into the esophagus. At 30 cm from the teeth, the patient was noted to have an impacted piece of meat. This was taken apart in piecemeal fashion using a Tri-prong graspers. A couple of the larger pieces of meat were removed and the endoscope was reinserted. I was eventually able to break up the meat enough that the remainder of the food bolus was able to be pushed into the stomach and the obstruction cleared. The scope was then advanced into the second portion of duodenum. A photograph was taken. The scope was then fully withdrawn while examining the color, texture, anatomy, and integrity mucosa of the upper GI tract. The duodenum appeared normal. The scope was brought into the stomach and a photograph was taken of the pylorus which appeared anatomically normal. The scope was retroflexed, and I was able to see the small - to-moderate sized hiatal hernia. The gastric mucosa was free of gross inflammation or ulceration. The scope was brought into the distal esophagus. This was somewhat tortuous due to the size of a hiatal hernia. There was a small amount of inflammation along the GE junction. A photograph of this was taken. The remainder of the esophageal mucosa appeared free of pathology, and there was no evidence of perforation. The scope was removed and the procedure terminated. The patient tolerated the procedure well and was taken to the PACU in stable condition. ENDOSCOPIC DIAGNOSIS: Hiatal hernia with gastroesophageal reflux disease. Esophageal obstruction secondary to food bolus. RECOMMENDATIONS: The patient should continue to take her daily PPI. I will see the patient in clinic in 2 weeks to discuss options for further treatment of her hiatal hernia. SURINDER RENNER /[id number] MTDD
== END 2019-05-11 17:28 | disposition home or self-care (01) ==
LOC: MW.ED 13:16 → MW.SDS 14:59
PROVIDERS: ATTEND Surgery
DX: T18.128A Food in esophagus causing other injury, initial encounter (principal); K44.9 Diaphragmatic hernia without obstruction or gangrene; K21.9 Gastro-esophageal reflux disease without esophagitis; M19.90 Unspecified osteoarthritis, unspecified site; E66.9 Obesity, unspecified; Z88.0 Allergy status to penicillin; Z79.899 Other long term (current) drug therapy; Z68.32 Body mass index [BMI] 32.0-32.9, adult
CPT/HCPCS: 36415; 43247; 71045; 80053; 84484; 85025; 85610; 93005; 96361; 96374; 99285; J0330; J1610; J2001; J2250; J2405; J2704; J3010; J7040; 00731; 99283; J7030

== ENCOUNTER 2022-12-26 20:51 | Emergency (ER) | payer MEDICARE, OTHER ==
[2022-12-26] MEDS ORDERED: Sodium Chloride 0.9% 10 ML Syringe FLUSH PRN (21:10)
[2022-12-26] MEDS ORDERED: Sodium Chloride 0.9% 2.5 ML Syringe FLUSH PRN (21:10)
[2022-12-26] MEDS ORDERED: Metoclopramide 10 MG/2 ML SDV IVPUSH ONE (21:10)
[2022-12-26] MEDS ORDERED: Sodium Chloride 0.9% 1,000 ML IV ONE (21:10)
[2022-12-26] MEDS ORDERED: diphenhydrAMINE 50 MG/ML SDV IVPUSH ONE (21:10)
[2022-12-26 21:18] LABS: BASOPHILS PERCENT AUTO 0.2 % (0.0-1.5); EOSINOPHILS ABSOLUTE AUTO 0.1 K/uL (0.0-0.7); EOSINOPHILS PERCENT AUTO 0.5 % (0.0-7.0); HEMATOCRIT 37.2 % (36.0-46.0); HEMOGLOBIN 12.2 g/dL (12.0-16.0); LYMPHOCYTES ABSOLUTE AUTO 2.4 K/uL (0.6-2.4); LYMPHOCYTES PERCENT AUTO 20.5 % (16.0-40.0); MEAN CORPUSCULAR HEMOGLOBIN 29.5 pg (27.0-32.0); MEAN CORPUSCULAR HGB CONC 32.8 g/dL (31.0-37.0); MEAN CORPUSCULAR VOLUME 89.9 fL (80.0-98.0); MONOCYTES PERCENT AUTO 8.4 % (0.0-15.0); NEUTROPHILS ABSOLUTE AUTO 8.2 K/uL (1.4-5.7); NEUTROPHILS PERCENT AUTO 70.4 % (48.0-80.0); NRBC ABSOLUTE 0 K/uL; NRBC PERCENT 0.2 /100WBC; PLATELET COUNT,PLT 457 K/uL (150-400); RED BLOOD CELL COUNT 4.14 M/uL (4.30-5.90); WHITE BLOOD CELL COUNT,WBC 11.67 K/uL (4.0-11.0)
[2022-12-26 21:26] LABS: INR 1.01 (0.86-1.11)
[2022-12-26 21:30] LABS: A/G RATIO 0.8 (0.9-1.6); ALBUMIN 3.1 g/dL (3.4-5.0); BILIRUBIN TOTAL 1.4 mg/dL (0.2-1.0); CALCIUM 8.8 mg/dL (8.5-10.1); CARBON DIOXIDE,CO2 26.2 mmol/L (21.0-32.0); CREATININE 0.8 mg/dL (0.6-1.0); EST CRCL DRUG DOSING (CG) 53.83 mL/min; PROTEIN TOTAL,TP 6.9 g/dL (6.4-8.2)
[2022-12-26] MEDS ORDERED: Aspirin 81 MG Tab.Chew PO ONE (21:39)
[2022-12-26] MEDS ORDERED: Iopamidol 755 MG/ML 500 ML Multipack Bottle IVPUSH ONE (22:20)
[2022-12-26] MEDS ORDERED: Heparin Sodium/0.45% NaCl 500 ML IV SCH (23:30)
[2022-12-26] MEDS ORDERED: Heparin Sodium 5,000 Units/ML Vial IVPUSH ONE (23:39)
[2022-12-27] MEDS ORDERED: fentaNYL 50 MCG/ML SDV IVPUSH ONE (00:01)
[2022-12-27] MEDS ORDERED: Naloxone 0.4 MG/ML SDV IVPUSH PRN (00:01)
== END 2022-12-27 02:28 ==
LOC: MW.ED 20:51
DX: I21.4 Non-ST elevation (NSTEMI) myocardial infarction (principal); I26.99 Other pulmonary embolism without acute cor pulmonale; J96.01 Acute respiratory failure with hypoxia; K21.9 Gastro-esophageal reflux disease without esophagitis; E66.9 Obesity, unspecified; Z88.0 Allergy status to penicillin; Z79.899 Other long term (current) drug therapy; Z96.652 Presence of left artificial knee joint
CPT/HCPCS: 36415; 71275; 80053; 83690; 84484; 85025; 85610; 85730; 93005; 96361; 96365; 96366; 96375; 99291; A9270; J1200; J1644; J2765; J3010; J3490; J7030; Q9967; 93010

== ENCOUNTER 2022-12-29 22:58 | Emergency (ER) | payer MEDICARE, OTHER ==
[2022-12-29] MEDS ORDERED: Sodium Chloride 0.9% 1,000 ML IV ONE (23:30)
[2022-12-29] MEDS ORDERED: Famotidine 20 MG/2 ML SDV IVPUSH ONE (23:30)
[2022-12-29] MEDS ORDERED: Promethazine 25 MG/ML SDV IM ONE (23:31)
[2022-12-30 00:16] LABS: BASOPHILS PERCENT AUTO 0.3 % (0.0-1.5); EOSINOPHILS PERCENT AUTO 0.4 % (0.0-7.0); HEMOGLOBIN 13.4 g/dL (12.0-16.0); LYMPHOCYTES ABSOLUTE AUTO 1.7 K/uL (0.6-2.4); LYMPHOCYTES PERCENT AUTO 16.6 % (16.0-40.0); MEAN CORPUSCULAR HEMOGLOBIN 30.2 pg (27.0-32.0); MEAN CORPUSCULAR HGB CONC 33.5 g/dL (31.0-37.0); MEAN CORPUSCULAR VOLUME 90.1 fL (80.0-98.0); MONOCYTES ABSOLUTE AUTO 0.6 K/uL (0.0-0.8); MONOCYTES PERCENT AUTO 5.9 % (0.0-15.0); NEUTROPHILS PERCENT AUTO 76.8 % (48.0-80.0); PLATELET COUNT,PLT 350 K/uL (150-400); RED BLOOD CELL COUNT 4.44 M/uL (4.30-5.90); WHITE BLOOD CELL COUNT,WBC 10.42 K/uL (4.0-11.0)
[2022-12-30 00:34] LABS: ALBUMIN 3.4 g/dL (3.4-5.0); BILIRUBIN TOTAL 1.4 mg/dL (0.2-1.0); CALCIUM 9.5 mg/dL (8.5-10.1); CARBON DIOXIDE,CO2 24.6 mmol/L (21.0-32.0); CREATININE 0.7 mg/dL (0.6-1.0); EST CRCL DRUG DOSING (CG) 61.52 mL/min; MAGNESIUM 1.7 mg/dL (1.8-2.4); POTASSIUM,K 4.8 mmol/L (3.5-5.1); PROTEIN TOTAL,TP 6.9 g/dL (6.4-8.2)
[2022-12-30] MEDS ORDERED: Iopamidol 755 MG/ML 500 ML Multipack Bottle IVPUSH ONE (00:41)
[2022-12-30 01:57] LABS: APPEARANCE,URINE CLEAR; BILIRUBIN,URINE NEGATIVE (NEGATIVE); GLUCOSE,URINE NEGATIVE (NEGATIVE); KETONES,URINE 15 mg/dL (NEGATIVE); LEUKOCYTE ESTERASE,URINE NEGATIVE (NEGATIVE); NITRITE,URINE NEGATIVE (NEGATIVE); OCCULT BLOOD,URINE SMALL (NEGATIVE); PROTEIN,URINE NEGATIVE (NEGATIVE); UROBILINOGEN,URINE 0.2 EU/dL (<2.0)
[2022-12-30 02:07] LABS: BACTERIA,URINE RARE (NEGATIVE); COLOR,URINE STRAW; EPITHELIAL CELLS,URINE OCCASIONAL (NONE-FEW); WBC,URINE 0-2 (0-5/HPF)
[2022-12-30] MEDS ORDERED: Morphine 2 MG/ML SYRINGE IVPUSH ONE (02:24)
== END 2022-12-30 03:19 | disposition home or self-care (01) ==
LOC: MW.ED 22:58
DX: R11.2 Nausea with vomiting, unspecified (principal); K21.9 Gastro-esophageal reflux disease without esophagitis; Z88.0 Allergy status to penicillin; Z88.5 Allergy status to narcotic agent; Z88.8 Allergy status to other drugs, medicaments and biological substances; Z79.01 Long term (current) use of anticoagulants; Z20.822 Contact with and (suspected) exposure to COVID-19; Z79.899 Other long term (current) drug therapy
CPT/HCPCS: 36415; 74177; 80053; 81001; 83690; 83735; 84484; 85025; 96361; 96372; 96374; 96375; 99284; J2270; J2550; J3490; J7030; Q9967; U0002; 93010

== ENCOUNTER 2023-04-08 13:43 | Emergency (ER) | payer MEDICARE, OTHER ==
[2023-04-08 14:29] LABS: BASOPHILS ABSOLUTE AUTO 0.03 K/uL (0.00-0.20); BASOPHILS PERCENT AUTO 0.4 % (0.0-1.0); EOSINOPHILS PERCENT AUTO 1.2 % (0.0-6.0); HEMATOCRIT 40.3 % (37.0-47.0); HEMOGLOBIN 13.3 g/dL (12.0-16.0); IMMATURE GRAN ABSOLUTE AUTO 0.01 K/uL (0.00-0.05); IMMATURE GRAN PERCENT AUTO 0.1 % (0.0-0.4); LYMPHOCYTES ABSOLUTE AUTO 3.21 K/uL (1.00-4.80); LYMPHOCYTES PERCENT AUTO 38.4 % (24.0-44.0); MEAN CORPUSCULAR HEMOGLOBIN 29.6 pg (28.0-32.0); MEAN CORPUSCULAR VOLUME 89.8 fL (83.0-99.0); MEAN PLATELET VOLUME 8.7 fL (9.4-12.3); MONOCYTES ABSOLUTE AUTO 0.55 K/uL (0.00-0.80); MONOCYTES PERCENT AUTO 6.6 % (0.0-8.0); NEUTROPHILS ABSOLUTE AUTO 4.46 K/uL (1.80-7.70); NEUTROPHILS PERCENT AUTO 53.3 % (41.0-71.0); PLATELET COUNT,PLT 418 K/uL (150-400); RED BLOOD CELL COUNT 4.49 M/uL (4.10-5.30); WHITE BLOOD CELL COUNT,WBC 8.36 K/uL (3.9-11.3)
[2023-04-08 14:58] LABS: A/G RATIO 0.9 (0.9-1.6); ALBUMIN 3.5 g/dL (3.4-5.0); CALCIUM 8.9 mg/dL (8.5-10.1); CARBON DIOXIDE,CO2 28.2 mmol/L (21.0-32.0); CREATININE 0.9 mg/dL (0.6-1.0); EST CRCL DRUG DOSING (CG) 47.85 mL/min; PROTEIN TOTAL,TP 7.2 g/dL (6.4-8.2)
[2023-04-08] MEDS ORDERED: Iopamidol 755 MG/ML 500 ML Multipack Bottle IVPUSH STA (15:59)
== END 2023-04-08 18:15 | disposition home or self-care (01) ==
LOC: MW.ED 13:43
DX: S80.12XA Contusion of left lower leg, initial encounter (principal); I10 Essential (primary) hypertension; K21.9 Gastro-esophageal reflux disease without esophagitis; E66.9 Obesity, unspecified; Z68.30 Body mass index [BMI] 30.0-30.9, adult; Z88.5 Allergy status to narcotic agent; Z88.8 Allergy status to other drugs, medicaments and biological substances; Z88.0 Allergy status to penicillin; Z79.01 Long term (current) use of anticoagulants; W18.30XA Fall on same level, unspecified, initial encounter; Z79.899 Other long term (current) drug therapy
CPT/HCPCS: 36415; 73701; 80053; 83605; 85025; 87040; 99284; Q9967

== ENCOUNTER 2024-01-18 05:28 | Day surgery (SDC) | payer MEDICARE, OTHER ==
[2024-01-18] MEDS: Sodium Chloride 0.9% 1,000 ML IV ONE (06:08)
[2024-01-18] MEDS: Ondansetron 4 MG/2 ML SDV IVPUSH ONE (06:12)
[2024-01-18] MEDS: Famotidine 20 MG/2 ML SDV IVPUSH ONE (06:12)
[2024-01-18] MEDS: Sodium Chloride 0.9% 2.5 ML Syringe FLUSH PRN (06:12)
[2024-01-18] MEDS: Glucagon,Human Recombinant 1 MG Vial IVPUSH ONE (06:12)
[2024-01-18] MEDS: Sodium Chloride 0.9% 10 ML Syringe FLUSH PRN (06:13)
[2024-01-18 06:17] LABS: BASOPHILS ABSOLUTE AUTO 0.03 K/uL (0.00-0.20); BASOPHILS PERCENT AUTO 0.4 % (0.0-1.0); EOSINOPHILS ABSOLUTE AUTO 0.13 K/uL (0.00-0.45); EOSINOPHILS PERCENT AUTO 1.9 % (0.0-6.0); HEMATOCRIT 46.7 % (37.0-47.0); HEMOGLOBIN 15.4 g/dL (12.0-16.0); IMMATURE GRAN ABSOLUTE AUTO 0.01 K/uL (0.00-0.05); IMMATURE GRAN PERCENT AUTO 0.1 % (0.0-0.4); LYMPHOCYTES ABSOLUTE AUTO 3.02 K/uL (1.00-4.80); LYMPHOCYTES PERCENT AUTO 44.2 % (24.0-44.0); MEAN CORPUSCULAR HEMOGLOBIN 28.6 pg (28.0-32.0); MEAN CORPUSCULAR VOLUME 86.8 fL (83.0-99.0); MEAN PLATELET VOLUME 9.1 fL (9.4-12.3); MONOCYTES ABSOLUTE AUTO 0.55 K/uL (0.00-0.80); MONOCYTES PERCENT AUTO 8.1 % (0.0-8.0); NEUTROPHILS ABSOLUTE AUTO 3.09 K/uL (1.80-7.70); NEUTROPHILS PERCENT AUTO 45.3 % (41.0-71.0); PLATELET COUNT,PLT 335 K/uL (150-400); RED BLOOD CELL COUNT 5.38 M/uL (4.10-5.30); WHITE BLOOD CELL COUNT,WBC 6.83 K/uL (3.9-11.3)
[2024-01-18] MEDS: Water For Injection, Sterile 10 ML SDV INJECT ONE (06:34)
[2024-01-18 06:37] LABS: A/G RATIO 1.1 (0.9-1.6); BILIRUBIN TOTAL 1.3 mg/dL (0.2-1.0); CALCIUM 9.5 mg/dL (8.5-10.1); CARBON DIOXIDE,CO2 28.5 mmol/L (21.0-32.0); CREATININE 0.8 mg/dL (0.6-1.0); EST CRCL DRUG DOSING (CG) 50.85 mL/min; POTASSIUM,K 3.9 mmol/L (3.5-5.1); PROTEIN TOTAL,TP 7.5 g/dL (6.4-8.2)
[2024-01-18] MEDS ORDERED: fentaNYL 100 MCG/2 ML SDV ONE (08:39)
[2024-01-18] MEDS ORDERED: Propofol 200 MG/20 ML SDV ONE (08:39)
[2024-01-18] MEDS ORDERED: Water For Injection, Sterile 20 ML ONE (08:39)
[2024-01-18] MEDS ORDERED: dexmedeTOMIDine HCl 200 MCG/2 ML SDV ONE (08:39)
[2024-01-18] MEDS ORDERED: Succinylcholine/Sod PF 100 MG/5 ML SYRINGE IV ONE (08:39)
[2024-01-18] MEDS ORDERED: Ondansetron 4 MG/2 ML SDV ONE (09:25)
[2024-01-18] MEDS ORDERED: Dexamethasone 4 MG/ML 5 ML MDV ONE (09:25)
== END 2024-01-18 11:00 | disposition home or self-care (01) ==
LOC: MW.ED 05:28 → MW.MS 10:43 → MW.SDS 10:43
PROVIDERS: ATTEND Surgery
DX: T18.128A Food in esophagus causing other injury, initial encounter (principal); K44.9 Diaphragmatic hernia without obstruction or gangrene; K22.2 Esophageal obstruction; I10 Essential (primary) hypertension; K21.9 Gastro-esophageal reflux disease without esophagitis; E78.00 Pure hypercholesterolemia, unspecified; E66.9 Obesity, unspecified; Z88.0 Allergy status to penicillin; Z88.8 Allergy status to other drugs, medicaments and biological substances; Z68.35 Body mass index [BMI] 35.0-35.9, adult
CPT/HCPCS: 36415; 43247; 71045; 80053; 83690; 85025; 96361; 96374; 96375; 99285; J0330; J1100; J1611; J2405; J2704; J3010; J3490; J7030; 00731; 88300; 99100; 99284